=== PATIENT | male | born 1995 | race African-American/Black ===

== ENCOUNTER 2017-06-24 23:36 | Emergency (ER) | payer MEDICAID ==
[~2017-06-24] VITALS: Ht 180.3 cm; Wt 63.0 kg
[2017-06-25] MEDS ORDERED: IBUPROFEN 400MG TABLET PO ONE (01:15)
[2017-06-25] MEDS ORDERED: BACITRACIN ZINC OINT UDPKT TOP ONE (01:15)
[2017-06-25 02:20] VITALS: BP 111/68
== END 2017-06-25 02:20 | disposition home or self-care (01) ==
LOC: ER 06-25 00:19
DX: S30.812A Abrasion of penis, initial encounter (principal); H10.9 Unspecified conjunctivitis; X58.XXXA Exposure to other specified factors, initial encounter; Y93.89 Activity, other specified; Y92.89 Other specified places as the place of occurrence of the external cause; Y99.8 Other external cause status; Z98.890 Other specified postprocedural states
CPT/HCPCS: 99283

== ENCOUNTER 2018-09-01 22:58 | Emergency (ER) | payer MEDICAID ==
[~2018-09-01] VITALS: Ht 180.3 cm; Wt 93.0 kg
[2018-09-02] MEDS ORDERED: AZITHROMYCIN 500 MG TABLET PO ONE (00:30)
[2018-09-02] MEDS ORDERED: CEFTRIAXONE SODIUM 250 MG/VIAL IM ONE (00:30)
[2018-09-02 01:10] VITALS: BP 127/82
[2018-09-06 04:15] LABS: CHLAMYDIA TRACHOMATIS NAA Negative (Negative); NEISSERIA GONORRHOEAE NAA Negative (Negative)
== END 2018-09-02 01:14 | disposition home or self-care (01) ==
LOC: ER 22:58
DX: R36.9 Urethral discharge, unspecified (principal)
CPT/HCPCS: 87491; 87591; 96372; 99283; J0696

== ENCOUNTER → 2023-05-01 | Emergency (ER) | payer MEDICAID | LOC: ER 03:05 | DX: J11.89 Influenza due to unidentified influenza virus with other manifestations (principal); Z53.21 Procedure and treatment not carried out due to patient leaving prior to being seen by health care provider | CPT/HCPCS: 99281 ==

== ENCOUNTER 2023-12-23 14:14 | Emergency (ER) | payer MEDICAID ==
[~2023-12-23] VITALS: Ht 180.3 cm; Wt 100.0 kg
[2023-12-23 14:25] VITALS: BP 153/87; PULSE 83; RESP 18; TEMP 98.7; O2SAT 98; O2SAT 99
[2023-12-23 14:38] LABS: CLARITY URINE CLEAR (CLEAR); COLOR URINE YELLOW (YELLOW); GLUCOSE URINE NEGATIVE (NEGATIVE); KETONES URINE NEGATIVE (NEGATIVE); LEUKOCYTE ESTERASE URINE NEGATIVE (NEGATIVE); NITRITE URINE NEGATIVE (NEGATIVE); OCCULT BLOOD URINE NEGATIVE (NEGATIVE); PH URINE 6.5 (4.5-8.0); PROTEIN URINE NEGATIVE (NEGATIVE); SPECIFIC GRAVITY URINE 1.013 (1.005-1.030)
[2023-12-23 15:56] LABS: BASOPHILS % 0.6 % (0.0-2.0); EOSINOPHILS % 1.4 % (0.0-5.0); HEMATOCRIT. 45.7 % (42.0-52.0); HEMOGLOBIN. 15.6 g/dL (14.0-18.0); MEAN CORPUSCULAR HEMOGLOBIN 31.2 pg (28.0-32.0); MEAN CORPUSCULAR HGB CONC 34.2 g/dL (31.0-37.0); MEAN CORPUSCULAR VOLUME 91.2 fL (80.0-94.0); MEAN PLATELET VOLUME 7.9 fl (7.4-10.4); MONOCYTES % 5.2 % (2.0-8.0); NEUTROPHILS % 70.8 % (40.0-76.0); PLATELET 270 x1000/uL (130-400); RED CELL DISTRIBUTION WIDTH 13.9 % (11.6-14.6); WHITE BLOOD COUNT 9.9 x1000/uL (4.5-11.0)
[2023-12-23 16:02] LABS: CARBON DIOXIDE 30 mEq/L (21-32); CHLORIDE 106 mEq/L (98-107); POTASSIUM 3.5 mEq/L (3.5-5.1); SODIUM 139 mEq/L (136-145)
[2023-12-23 16:03] LABS: CALCIUM 9.7 mg/dL (8.7-10.4)
[2023-12-23 16:08] LABS: GLUCOSE 80 mg/dL (70-105); UREA NITROGEN BLOOD 5 mg/dL (9-23)
[2023-12-23 16:09] LABS: ALANINE AMINOTRANSFERASE 23 IU/L (10-49)
[2023-12-23 16:10] LABS: ALBUMIN 4.8 g/dL (3.2-4.8); ASPARTATE AMINOTRANSFERASE 23 IU/L (<34); BILIRUBIN DIRECT 0.2 mg/dL (<=3.0); BILIRUBIN TOTAL 0.6 mg/dL (0.1-1.0); PROTEIN TOTAL 7.6 g/dL (6.0-8.3)
[2023-12-23] MEDS ORDERED: KETOROLAC 15MG/ML VIAL IM ONE (18:15)
== END 2023-12-23 20:00 | disposition left against medical advice (07) ==
LOC: ER 14:23
DX: K52.9 Noninfective gastroenteritis and colitis, unspecified (principal); F32.A Depression, unspecified
CPT/HCPCS: 36415; 74176; 80048; 80076; 81003; 85025; 86850; 86900; 99284

== ENCOUNTER 2025-01-09 23:54 | Emergency (ER) | payer MEDICAID ==
[~2025-01-09] VITALS: Ht 175.3 cm; Wt 111.0 kg
[2025-01-10 00:08] VITALS: O2SAT 98
[2025-01-10] MEDS ORDERED: KETO10TA2 MT (01:36)
[2025-01-10 01:44] VITALS: BP 119/71; PULSE 71; RESP 18; TEMP 36.8; O2SAT 98
== END 2025-01-10 01:48 | disposition home or self-care (01) ==
LOC: ER 23:54
DX: S20.212A Contusion of left front wall of thorax, initial encounter (principal); X58.XXXA Exposure to other specified factors, initial encounter; Y93.89 Activity, other specified; Y92.89 Other specified places as the place of occurrence of the external cause; Y99.8 Other external cause status
CPT/HCPCS: 71100; 99283